=== PATIENT | female | born 1970 | race Caucasian/White ===

== ENCOUNTER → 2025-08-11 13:28 | Outpatient (CLI) | payer OTHER, SELFPAY ==
--- NOTE | 2025-08-11 13:30 | DI.RAD.S_ITS ---
PROCEDURE: XR LUMBAR SPINE MIN 4V INDICATIONS: back pain TECHNIQUE: 5 views of the lumbar spine acquired, including flexion and extension views. COMPARISON: Outside Facility, CR, XR LUMBAR SPINE 2-3V, 01/01/2025, 15:45. FINDINGS: Severe degenerative disc disease and facet arthropathy with complete disc height loss at L5-S1. Grade 1 anterolisthesis at L4-L5. No intersegmental hypermobility. Degenerative changes appear similar to prior examination. Vertebral body heights maintained. IMPRESSION: No intersegmental hypermobility. Degenerative changes. Dictated by: Rickey Olivares M.D. on 08/11/2025 at 13:49 Approved by: Rickey Olivares M.D. on 08/11/2025 at 13:50
== END ==
PROVIDERS: PCP Family Medicine; Referring Provider Physical Medicine & Rehabilitation; Visit Provider Physical Medicine & Rehabilitation
DX: M43.16 Spondylolisthesis, lumbar region (principal); M47.816 Spondylosis without myelopathy or radiculopathy, lumbar region; M51.369 Other intervertebral disc degeneration, lumbar region without mention of lumbar back pain or lower extremity pain; M47.817 Spondylosis without myelopathy or radiculopathy, lumbosacral region
CPT/HCPCS: 72110